=== PATIENT | female | born 1990 | race African-American/Black ===

== ENCOUNTER 2019-03-28 17:24 | Emergency (ER) | payer OTHER ==
[~2019-03-28] VITALS: Ht 170.2 cm; Wt 162.8 kg
[2019-03-28 17:33] VITALS: BP 140/93
--- NOTE | 2019-03-28 18:32 | PHYS DOC ---
Past Medical History Past Medical History: Asthma Past Surgical History: No Surgical History Alcohol Use: None Drug Use: None Adult General Chief Complaint Chief Complaint: OTHER COMPLAINTS [facility] Patient is a 28 year old female who presents with nose pain this been ongoing for 3 days. Patient states that she was sick started a week ago and running fevers, nasal congestion, runny nose, fever. The patient states that she stopped being sick however then she started having cuts in her nose so she put some cold sore treatment inside the nose her nose started swelling and itching. Review of Systems Review of Systems Constitutional: Denies fever or chills [] Eyes: Denies change in visual acuity, redness, or eye pain [] HENT: Reports nasal sores. Respiratory: Denies cough or shortness of breath [] Cardiovascular: No additional information not addressed in HPI [] GI: Denies abdominal pain, nausea, vomiting, bloody stools or diarrhea [] : Denies dysuria or hematuria [] Musculoskeletal: Denies back pain or joint pain [] Integument: Denies rash or skin lesions [] Neurologic: Denies headache, focal weakness or sensory changes [] Endocrine: Denies polyuria or polydipsia [] Complete systems were reviewed and found to be within normal limits, except as documented in this note. Allergies Allergies Allergies Coded Allergies Type Severity Reaction Last Updated Verified No Known Drug Allergies 05/31/13 No Physical Exam Physical Exam Constitutional: Well developed, well nourished, no acute distress, non-toxic appearance. [] HENT: Normocephalic, nose is swollen, atraumatic, bilateral external ears normal, oropharynx moist, no oral exudates Eyes: PERRLA, EOMI, conjunctiva normal, no discharge. [] Neck: Normal range of motion, no tenderness, supple, no stridor. [] Cardiovascular:Heart rate regular rhythm, no murmur [] Lungs & Thorax: Bilateral breath sounds clear to auscultation [] Abdomen: Bowel sounds normal, soft, no tenderness, no masses, no pulsatile masses. [] Skin: nasal sores bilateral nose. Back: No tenderness, no CVA tenderness. [] Extremities: No tenderness, no cyanosis, no clubbing, ROM intact, no edema. [] Neurologic: Alert and oriented X 3, normal motor function, normal sensory function, no focal deficits noted. [] Psychologic: Affect normal, judgement normal, mood normal. [] Current Patient Data Vital Signs Vital Signs Date Time Temp Pulse Resp B/P (MAP) Pulse Ox O2 Delivery O2 Flow Rate FiO2 03/28/19 17:33 99.3 78 18 140/93 (109) 97 Room Air 99.3 EKG EKG [] Radiology/Procedures Radiology/Procedures [] Course & Med Decision Making Course & Med Decision Making Pertinent Labs and Imaging studies reviewed. (See chart for details) The patient has nasal sores and swelling. I suspect she is having a localized r eaction to the medication that she was using for her nose. I recommended that she stop using this medication and start using Neosporin in nares. Dragon Disclaimer Dragon Disclaimer This electronic medical record was generated, in whole or in part, using a voice recognition dictation system. Departure Departure Impression: Primary Impression: Sore in nose Disposition: HOME, SELF-CARE Condition: STABLE Referrals: FLETCHER BRADLEY MD (PCP) Additional Instructions: Thank you for visiting [facility]. We appreciate you trusting us with your care. If any additional problems come up don't hesitate to return to visit us. Please follow up with your primary care provider so they can plan additional care if needed and know about the problem that you had. If symptoms worsen come back to the Emergency Department. Any concerning symptoms that start such as chest pain, shortness of air, weakness or numbness on one side of the body, running high fevers or any other concerning symptoms return to the ER. Please start using Neosporin in your nares to see if that improves her condition. TRISTAN MARTIN APRN Mar 28, 2019 18:32
== END 2019-03-28 18:52 | disposition home or self-care (01) ==
LOC: ER 17:24
DX: J34.89 Other specified disorders of nose and nasal sinuses (principal); R09.81 Nasal congestion; R50.9 Fever, unspecified; R09.89 Other specified symptoms and signs involving the circulatory and respiratory systems; J45.909 Unspecified asthma, uncomplicated
CPT/HCPCS: 99281

== ENCOUNTER 2019-05-12 18:37 | Emergency (ER) | payer OTHER ==
[~2019-05-12] VITALS: Ht 172.7 cm; Wt 146.8 kg
[2019-05-12 18:52] VITALS: BP 153/93
[2019-05-12] MEDS ORDERED: NYST15PO9 TP (19:33)
[2019-05-12] MEDS ORDERED: FLUC150T PO (19:33)
--- NOTE | 2019-05-12 19:33 | PHYS DOC ---
Past Medical History Past Medical History: Asthma (LAURIE HOFFMAN APRN) Past Surgical History: No Surgical History (LAURIE HOFFMAN APRN) Alcohol Use: None Drug Use: None (LAURIE HOFFMAN APRN) Attending Signature I have participated in the care of this patient and I have reviewed and agree with all pertinent clinical information above including history, exam, and recommendations. (AGUILA RUTHERFORD MD) Adult General Chief Complaint Chief Complaint: VAGINAL PROBLEM HPI HPI Patient is a 28 year old AA female who presents to the emergency department with complaints of vaginal itching for the last week. She denies any irregular vaginal discharge, pelvic pain, vaginal odor, dysuria, hematuria, back pain, nausea, vomiting, diarrhea, fever, andominal pain, or concerns of sexually transmitted infection. Patient states she has been using ewlu-jzk-[id number] feminine washes and Vagisil to try to help with itching but reports that the itching has only become more intense. She denies any pain at this time. All other ROS is neg unless otherwise noted in HPI. (LAURIE HOFFMAN APRN) Review of Systems Review of Systems See Above (LAURIE HOFFMAN APRN) Allergies Allergies Allergies Coded Allergies Type Severity Reaction Last Updated Verified No Known Drug Allergies 05/31/13 No (AGUILA RUTHERFORD MD) Physical Exam Physical Exam See Above Constitutional: Well developed, well nourished, no acute distress, non-toxic appearance, obese. [] HENT: Normocephalic, atraumatic, bilateral external ears normal, nose normal. [] Eyes: PERRLA, EOMI, conjunctiva normal, no discharge. [] Neck: Normal range of motion, no stridor. [] Cardiovascular:Heart rate regular rhythm Lungs & Thorax: Respirations even and unlabored, no retractions, no respiratory distress Pelvic Exam: Office Systems Technology Instructor present [facility] Abdomen: Nontender, soft External Genitalia: Erythema with white discharge present to vulva consistent with vulvar lloyd Skin: Warm, dry Extremities: No cyanosis, ROM intact Neurologic: Alert and oriented X 3, no focal deficits noted. [] Psychologic: Affect normal, judgement normal, mood normal. [] (LAURIE HOFFMAN APRN) Current Patient Data Vital Signs Vital Signs Date Time Temp Pulse Resp B/P (MAP) Pulse Ox O2 Delivery O2 Flow Rate FiO2 05/12/19 18:52 98.8 83 20 153/93 (113) 100 Room Air 98.8 (AGUILA RUTHERFORD MD) EKG EKG [] (LAURIE HOFFMAN APRN) Radiology/Procedures Radiology/Procedures [] (LAURIE HOFFMAN APRN) Course & Med Decision Making Course & Med Decision Making Pertinent Labs and Imaging studies reviewed. (See chart for details) [] (LAURIE HOFFMAN APRN) Dragon Disclaimer Dragon Disclaimer This electronic medical record was generated, in whole or in part, using a voice recognition dictation system. (LAURIE HOFFMAN APRN) Departure Departure Impression: Primary Impression: Vulvar candidiasis Disposition: 01 HOME, SELF-CARE Condition: STABLE Referrals: FLETCHER BRADLEY MD (PCP) Patient Instructions: Candidal Vulvovaginitis, Cwlu-[id number] Additional Instructions: Fill the prescriptions and use them as directed. Recommend leaving the affected area open to air at night. Do not use soap or feminine products to cleanse vaginal area. Follow-up with your STRUCTURAL ANALYSIS ENGINEER this week. Return to the ER symptoms worsen. Scripts Nystatin (NYSTATIN) 15 Gm Powder 1 LEO TP BID for 7 Days, #1 BOTTLE 0 Refills apply to affected area(s) Prov: LAURIE HOFFMAN APRN 05/12/19 Fluconazole (DIFLUCAN) 150 Mg Tablet 1 TAB PO ONCE, #1 TAB 1 Refill may repeat in 72 hours if symptoms persist Prov: LAURIE HOFFMAN APRN 05/12/19 LAURIE HOFFAMN APRN May 12, 2019 19:33 AGUILA RUTHERFORD MD May 13, 2019 03:56
== END 2019-05-12 19:42 | disposition home or self-care (01) ==
LOC: ER 18:37
DX: B37.3 Candidiasis of vulva and vagina (principal); J45.909 Unspecified asthma, uncomplicated
CPT/HCPCS: 99283

== ENCOUNTER 2019-07-28 18:28 | Emergency (ER) | payer OTHER ==
[~2019-07-28] VITALS: Ht 172.7 cm; Wt 140.9 kg
[~2019-07-28 18:28] MED LIST: FLUC150T PO; NYST15PO9 TP
[2019-07-28 19:00] VITALS: BP 170/100
[2019-07-28] MEDS ORDERED: FLUC150T PO (19:20)
--- NOTE | 2019-07-28 19:20 | PHYS DOC ---
Past Medical History Past Medical History: Asthma Past Surgical History: No Surgical History Smoking Status: Never Smoker Alcohol Use: None Drug Use: None General Adult EDM: Chief Complaint: VAGINAL PROBLEM HPI: HPI: Patient is a 28 year old female with history of asthma who presents with complaining of yeast infection. Patient states for the last week she had cottage cheese vaginal discharge and itching that did not get better with taking szyn-orw-nxvmloe infection medication. Patient states she had the same problem couple months ago and was seen in this emergency room and had unremarkable vaginal exam except for yeast infection and treated with Diflucan with improvement of her condition. Patient denies having new sexual partner, , concern or history of STD. Review of Systems: Review of Systems: Constitutional: Denies fever or chills. [] Eyes: Denies change in visual acuity. [] HENT: Denies nasal congestion or sore throat. [] Respiratory: Denies cough or shortness of breath. [] Cardiovascular: Denies chest pain or edema. [] GI: Denies abdominal pain, nausea, vomiting, bloody stools or diarrhea. [] : Denies dysuria. [] Musculoskeletal: Denies back pain or joint pain. [] Integument: Denies rash. [] Neurologic: Denies headache, focal weakness or sensory changes. [] Endocrine: Denies polyuria or polydipsia. [] Lymphatic: Denies swollen glands. [] Psychiatric: Denies depression or anxiety. [] Heart Score: Risk Factors: Risk Factors: DM, Current or recent (<one month) smoker, HTN, HLP, family history of CAD, obesity. Risk Scores: Score 0 - 3: 2.5% MACE over next 6 weeks - Discharge Home Score 4 - 6: 20.3% MACE over next 6 weeks - Admit for Clinical Observation Score 7 - 10: 72.7% MACE over next 6 weeks - Early Invasive Strategies Allergies: Allergies: Allergies Coded Allergies Type Severity Reaction Last Updated Verified No Known Drug Allergies 05/31/13 No Physical Exam: PE: Constitutional: Well developed, well nourished, no acute distress, non-toxic appearance. [] HENT: Normocephalic, atraumatic. Eyes: PERRLA, EOMI, conjunctiva normal, no discharge. [] Neck: Normal range of motion, no tenderness, supple, no stridor. [] Cardiovascular:Heart rate regular rhythm, no murmur [] Lungs & Thorax: Bilateral breath sounds clear to auscultation [] Abdomen: Bowel sounds normal, soft, no tenderness, no masses, no pulsatile masses. Patient refused vaginal exam. Neurologic: Alert and oriented X 3, no focal deficits noted. [] Psychologic: Affect normal, judgement normal, mood normal. [] Current Patient Data: Vital Signs: Vital Signs Date Time Temp Pulse Resp B/P (MAP) Pulse Ox O2 Delivery O2 Flow Rate FiO2 07/28/19 19:00 97.7 127 16 170/100 (123) 99 Room Air 97.7 EKG: EKG: [] Radiology/Procedures: Radiology/Procedures: [] Course & Med Decision Making: Course & Med Decision Making Evaluation of patient in ER showed 28-year-old female patient with complaining of vaginal discharge and having yeast infection. Patient states she had the same problem previously and with diagnosis of yeast infection and did not want a vaginal exam. Patient had blood pressure of 140/100 and heart rate of 110s and states she gets anxiety when she is come to the hospital. Patient was advised to recheck her blood pressure and follow-up with her primary care physician sally. I've spoken with the patient and/or caregivers. I've explained the patient's condition, diagnosis and treatment plan based on information available to me at this time. I've answered the patient's and/or caregivers questions and addressed any concerns. The patient and/or caregivers have a good understanding the patient's diagnosis, condition and treatment plan as can be expected at this point. Vital signs have been stabilized. The patient's condition is stable for discharge from the emergency department. The patient will pursue further outpatient evaluation with her primary care provider or other designated consulting physician as outlined in the discharge instructions. Patient and/or caregivers are agreeable to this plan of care and follow-up instructions have been explained in detail. The patient and/or caregivers have received these instructions in written format and expressed understanding of these discharge instructions. The patient and her caregivers are aware that if any significant change in condition or worsening of symptoms should prompt him to immediately return to this of the closest emergency department. If an emergent department is not readily available I would encourage him to call 911. Ely Disclaimer: Ely Disclaimer: This electronic medical record was generated, in whole or in part, using a voice recognition dictation system. Departure Departure Impression: Primary Impression: Vaginal discharge Additional Impressions: Morbid obesity Elevated blood pressure reading without diagnosis of hypertension Disposition: HOME, SELF-CARE (At 1913) Condition: STABLE Referrals: FLETCHER BRADLEY MD (PCP) Patient Instructions: Candidal Vulvovaginitis, Chtu-[id number] Additional Instructions: Drink plenty of liquids Follow-up with your primary care physician in 3-5 days Return to ER if not getting better Record your blood pressure and follow-up with your primary care physician if your blood pressure is elevated Thank you for visiting [facility]. We appreciate you trusting us with your care. If any additional problems come up don't hesitate to return to visit us. Please follow up with your primary care provider so they can plan additional care if needed and know about the problem that you had. If symptoms worsen come back to the Emergency Department. Any concerning symptoms that start such as chest pain, shortness of air, weakness or numbness on one side of the body, running high fevers or any other concerning symptoms return to the ER. Scripts Fluconazole (DIFLUCAN) 150 Mg Tablet 1 TAB PO ONCE, #2 TAB 1 Refill Take one pill today, repeat in one week. Prov: KIRTI VALE MD 07/28/19 KIRTI VALE MD Jul 28, 2019 19:20
== END 2019-07-28 19:49 | disposition home or self-care (01) ==
LOC: ER 18:28
DX: N89.8 Other specified noninflammatory disorders of vagina (principal); R03.0 Elevated blood-pressure reading, without diagnosis of hypertension; J45.909 Unspecified asthma, uncomplicated; E66.01 Morbid (severe) obesity due to excess calories; Z68.42 Body mass index [BMI] 45.0-49.9, adult
CPT/HCPCS: 99283

== ENCOUNTER 2020-07-15 05:17 | Emergency (ER) | payer OTHER ==
[~2020-07-15] VITALS: Ht 172.7 cm; Wt 77.8 kg
[2020-07-15 05:20] VITALS: BP 169/97
[2020-07-15] MEDS ORDERED: PRED50TA PO (06:00)
[2020-07-15] MEDS ORDERED: CETI1TAB7 PO (06:00)
--- NOTE | 2020-07-15 06:02 | ED.ADGEN ---
Past Medical History Past Medical History: Asthma Past Surgical History: No Surgical History Smoking Status: Never Smoker Alcohol Use: None Drug Use: None General Adult EDM: Chief Complaint: SORE THROAT HPI: HPI: Patient is a 29-year-old female with past medical history of asthma who presents to the emergency room complaining of nasal congestion, bilateral ear pain, sore throat, painful swallowing, cough, chest congestion. This is been ongoing for the last 3 days. Her son and sister are also ill. She has not been taking anything at home for her symptoms. She has been using her albuterol inhaler due to wheezing. She denies any shortness of breath. She does not have any chest pain. Review of Systems: Review of Systems: Complete ROS is negative unless otherwise documented in HPI Allergies: Allergies: Allergies Coded Allergies Type Severity Reaction Last Updated Verified No Known Drug Allergies 05/31/13 No Physical Exam: PE: General: Awake, alert, NAD. Well Nourished, well hydrated. Cooperative HEENT: Atraumatic, EOMI, PERRL, airway patent, moist oral mucosa, bilateral tonsillar swelling with ulceration Neck: Supple, trachea midline Respiratory: CTA bilaterally, normal effort, no wheezing/crackles CV: RRR, no murmur, cap refill <2 GI: Soft, nondistended, nontender, no masses MSK: No obvious deformities Skin: Warm, dry, intact Neuro: A&O x3, speech NL, sensory and motor grossly intact, no focal deficits Psych: Normal affect, normal mood, not suicidal or homicidal Current Patient Data: Labs: Laboratory Tests Test 07/15/20 06:21 POC Urine HCG, Qualitative Hcg negative (Negative) Vital Signs: Vital Signs Date Time Temp Pulse Resp B/P (MAP) Pulse Ox O2 Delivery O2 Flow Rate FiO2 07/15/20 05:20 98.8 99 22 169/97 (121) 100 Room Air 98.8 EKG: EKG: [] Heart Score: C/O Chest Pain: N/A Risk Factors: Risk Factors: DM, Current or recent (<one month) smoker, HTN, HLP, family history of CAD, obesity. Risk Scores: Score 0 - 3: 2.5% MACE over next 6 weeks - Discharge Home Score 4 - 6: 20.3% MACE over next 6 weeks - Admit for Clinical Observation Score 7 - 10: 72.7% MACE over next 6 weeks - Early Invasive Strategies Radiology/Procedures: Radiology/Procedures: [] Course & Med Decision Making: Course & Med Decision Making Pertinent Labs and Imaging studies reviewed. (See chart for details) Patient is a 29-year-old female who presents to the emergency room complaining of URI symptoms. Patient does have bilateral tonsillar swelling. We will place her on prednisone for asthma exacerbation. She does not have any hypoxia at this time and does not need DuoNeb treatments here in the emergency room. She did use her albuterol inhaler right before coming in. Will swab for strep. Patient states there is no chance she could be . Patient discussed with oncoming physician who will assume care. Accepted care of patient at shift change. Pending strep results. Strep results negative we will discharged with medications prescribed by previous physician. Ely Disclaimer: Ely Disclaimer: This electronic medical record was generated, in whole or in part, using a voice recognition dictation system. Departure Departure Impression: Primary Impression: URI (upper respiratory infection) Disposition: 01 DC HOME SELF CARE/HOMELESS Condition: STABLE Referrals: FLETCHER BRADLEY MD (PCP) Patient Instructions: Upper Respiratory Infection, Adult Scripts Cetirizine Hcl/Pseudoephedrine (ZYRTEC-D TABLET) 1 Each Tab.er.12h 1 TAB PO BID, #20 TAB Prov: SARI DALTON MD 07/15/20 Prednisone (PREDNISONE) 50 Mg Tablet 1 TAB PO DAILY, #5 TAB Prov: SARI DALTON MD 07/15/20 SARI DALTON MD Jul 15, 2020 06:02 SREEDHAR ANDERSON MD Jul 15, 2020 06:43
== END 2020-07-15 06:57 | disposition home or self-care (01) ==
LOC: ER 05:17
DX: J06.9 Acute upper respiratory infection, unspecified (principal); J45.909 Unspecified asthma, uncomplicated
CPT/HCPCS: 81025; 87070; 87880; 99283

== ENCOUNTER 2020-11-15 14:39 | Emergency (ER) | payer OTHER ==
[~2020-11-15] VITALS: Ht 172.7 cm; Wt 170.4 kg
[~2020-11-15 14:39] MED LIST changes: +CETI1TAB7 PO; +PRED50TA PO
[2020-11-15 15:32] VITALS: BP 155/88
[2020-11-15] MEDS ORDERED: TOBR5DRO6 OS (16:06)
--- NOTE | 2020-11-15 16:07 | ED.ADGEN ---
Past Medical History Past Medical History: Asthma, Diabetes-Type II, Other Past Surgical History: No Surgical History Smoking Status: Never Smoker Alcohol Use: None Drug Use: None General Adult EDM: Chief Complaint: EYE PROBLEMS HPI: HPI: Patient is a 30 year old morbidly obese AA female who presents to the emergency department with complaints of the left eye redness and tearing for the last 3 to 4 days. She states that in the morning when she wakes up her eyelashes were crusted shut. She denies any decreased vision, photosensitivity, blurred vision, nasal congestion, fever, cough, vomiting, diarrhea, back pain, body aches, or rash. Patient states that she just found out she was recently she has an appointment with her primary care doctor tomorrow to find out how far along she is. She denies any abdominal complaints or irregular vaginal discharge at this time. Patient states she has felt nauseated but denies nausea at this time. She denies any contact lens use, she states that she does use false eyelashes frequently. Review of Systems: Review of Systems: Complete ROS is negative unless otherwise noted in HPI. Allergies: Allergies: Allergies Coded Allergies Type Severity Reaction Last Updated Verified No Known Drug Allergies 05/31/13 No Physical Exam: PE: See Above Constitutional: Well developed, well nourished, no acute distress, non-toxic appearance. [] HENT: Normocephalic, atraumatic, bilateral external ears normal, nose normal. [] Eyes: PERRLA, EOMI, right eye conjunctiva normal, no discharge from right eye; left eye conjunctive injected with watery discharge mild edema of upper and lower left eyelids.. [] Neck: Normal range of motion, no stridor. [] Cardiovascular:Heart rate regular rhythm Lungs & Thorax: Respirations even and unlabored, no retractions, no respiratory distress Skin: Warm, dry, no erythema, no rash. [] Extremities: No cyanosis, ROM intact, no edema. [] Neurologic: Alert and oriented X 3, no focal deficits noted. [] Psychologic: Affect normal, judgement normal, mood normal. [] Current Patient Data: Vital Signs: Vital Signs Date Time Temp Pulse Resp B/P (MAP) Pulse Ox O2 Delivery O2 Flow Rate FiO2 11/15/20 15:32 97.9 100 18 155/88 (121) 100 Room Air 97.9 EKG: EKG: [] Heart Score: C/O Chest Pain: No Radiology/Procedures: Radiology/Procedures: [] Course & Med Decision Making: Course & Med Decision Making Pertinent Labs and Imaging studies reviewed. (See chart for details) [] Bridgetteon Disclaimer: Ely Disclaimer: This electronic medical record was generated, in whole or in part, using a voice recognition dictation system. Departure Departure Impression: Primary Impression: Acute conjunctivitis, left eye Disposition: HOME / SELF CARE / HOMELESS Condition: STABLE Referrals: FLETCHER BRADLEY MD (PCP) Patient Instructions: Conjunctivitis (Viral and Bacterial) Additional Instructions: Fill the prescription(s) and use as directed. Apply warm, moist washcloths to eyes needed for comfort. Recommend use of baby shampoo to wash eyelids. Follow- up with your primary care doctor in 1-2 days. Return to the emergency room if your symptoms worsen. Scripts Tobramycin Ophth (TOBRAMYCIN OPHTH DROPS) 5 Ml Drops 2 DROP OS QID for 5 Days, #5 ML 0 Refills Prov: LAURIE HOFFMAN ANIMAL DAMAGE CONTROL AGENT 11/15/20 Problem Qualifiers Primary Impression: Acute conjunctivitis, left eye Acute conjunctivitis type: unspecified Qualified Codes: H10.32 - Unspecified acute conjunctivitis, left eye LAURIE HOFFMAN ANIMAL DAMAGE CONTROL AGENT Nov 15, 2020 16:07
== END 2020-11-15 16:12 | disposition home or self-care (01) ==
LOC: ER 14:39
DX: H10.32 Unspecified acute conjunctivitis, left eye (principal); E11.9 Type 2 diabetes mellitus without complications; J45.909 Unspecified asthma, uncomplicated; E66.01 Morbid (severe) obesity due to excess calories; Z68.43 Body mass index [BMI] 50.0-59.9, adult
CPT/HCPCS: 99283

== ENCOUNTER 2020-11-19 16:07 | Emergency (ER) | payer OTHER ==
[~2020-11-19] VITALS: Ht 172.7 cm; Wt 156.8 kg
[~2020-11-19 16:07] MED LIST changes: +TOBR5DRO6 OS
[2020-11-19 17:17] VITALS: BP 159/72
--- NOTE | 2020-11-19 17:45 | PHYS DOC ---
Past Medical History Past Medical History: Asthma, Diabetes-Type II, Other Past Surgical History: No Surgical History Smoking Status: Current Every Day Smoker Additional Information: VAPES Alcohol Use: None Drug Use: None General Adult EDM: Chief Complaint: OTHER COMPLAINTS HPI: HPI: Patient is a 30 year old female who presented to ER to request a Covid test. Patient said her roommates told her that they were tested positive for COVID-19 recently. Patient denies any cough, no fever, no chest pain, no trouble breathing, no diarrhea, no arm pain, no pelvic pain, no nausea vomiting. Patient has history diabetic, asthma. Patient says she recently found out that she is . Patient denies any related symptom, denies any vaginal bleeding, no pelvic pain, no abdominal pain. Patient is scheduled to see her OB on this coming Saturday. Review of Systems: Review of Systems: Constitutional: Denies fever or chills. [] Eyes: Denies change in visual acuity. [] HENT: Denies nasal congestion or sore throat. [] Respiratory: Denies cough or shortness of breath. [] Cardiovascular: Denies chest pain or edema. [] GI: Denies abdominal pain, nausea, vomiting, bloody stools or diarrhea. [] : Denies dysuria. [] Musculoskeletal: Denies back pain or joint pain. [] Integument: Denies rash. [] Neurologic: Denies headache, focal weakness or sensory changes. [] Endocrine: Denies polyuria or polydipsia. [] Lymphatic: Denies swollen glands. [] Psychiatric: Denies depression or anxiety. [] Heart Score: C/O Chest Pain: N/A Risk Factors: Risk Factors: DM, Current or recent (<one month) smoker, HTN, HLP, family history of CAD, obesity. Risk Scores: Score 0 - 3: 2.5% MACE over next 6 weeks - Discharge Home Score 4 - 6: 20.3% MACE over next 6 weeks - Admit for Clinical Observation Score 7 - 10: 72.7% MACE over next 6 weeks - Early Invasive Strategies Allergies: Allergies: Allergies Coded Allergies Type Severity Reaction Last Updated Verified No Known Drug Allergies 05/31/13 No Physical Exam: PE: Constitutional: Well developed, well nourished, no acute distress, non-toxic appearance. [] HENT: Normocephalic, atraumatic, bilateral external ears normal, oropharynx moist, no oral exudates, nose normal. [] Eyes: PERRLA, EOMI, conjunctiva normal, no discharge. [] Neck: Normal range of motion, no tenderness, supple, no stridor. [] Cardiovascular:Heart rate regular rhythm, no murmur [] Lungs & Thorax: Bilateral breath sounds clear to auscultation [] Abdomen: Bowel sounds normal, soft, no tenderness, no masses, no pulsatile masses. [] Skin: Warm, dry, no erythema, no rash. [] Back: No tenderness, no CVA tenderness. [] Extremities: No tenderness, no cyanosis, no clubbing, ROM intact, no edema. [] Neurologic: Alert and oriented X 3, normal motor function, normal sensory function, no focal deficits noted. [] Psychologic: Affect normal, judgement normal, mood normal. [] Current Patient Data: Labs: Laboratory Tests Test 11/19/20 17:36 POC Urine HCG, Qualitative Hcg positive (Negative) Vital Signs: Vital Signs Date Time Temp Pulse Resp B/P (MAP) Pulse Ox O2 Delivery O2 Flow Rate FiO2 11/19/20 17:17 98.3 121 17 159/72 (121) 99 Room Air 98.3 EKG: EKG: [] Radiology/Procedures: Radiology/Procedures: [] Course & Med Decision Making: Course & Med Decision Making Pertinent Labs and Imaging studies reviewed. (See chart for details) Patient is a 30-year-old female who presented to ER to have a Covid test because of close exposure to her roommates who was tested positive for COVID-19 recently. Patient denies any symptoms at this time, no chest pain, no trouble breathing, no cough, no fever. Patient is in her early first trimester , she is scheduled to see her OB doctor on this coming Saturday. We will obtain a Covid test, discharge her home with COVID-19 exposure and COVID-19 information. Patient will be quarantine at home until see her from the lab result. Ely Disclaimer: Ely Disclaimer: This electronic medical record was generated, in whole or in part, using a voice recognition dictation system. Departure Departure Impression: Primary Impression: Close exposure to COVID-19 virus Disposition: 01 HOME / SELF CARE / HOMELESS Condition: STABLE Referrals: FLETCHER BRADLEY MD (PCP) Follow up with your doctor for care. Additional Instructions: You have been tested for or diagnosed with COVID-19. It is an infection caused by a new type of coronavirus. COVID-19 will cause cold-like or mild flu symptoms in most. It can cause more severe symptoms like problems breathing in some. There is no treatment for COVID-19. The body will clear the infection over time. Self-care will help to ease discomfort. Steps to Take: Self-Care Rest as needed. Healthy habits may help you feel better. Steps include: Choose healthy foods including fruits and vegetables. Drink water throughout the day. Get plenty of sleep each night. If you smoke, try to quit. It may ease breathing. Avoid alcohol. Keep Others Healthy The virus can spread to others. Droplets are released every time you sneeze or cough. The droplets can get into the mouth, nose, or eyes of people near you and lead to infection. To lower the chances of spreading COVID-19 to others: Stay at home until your doctor has said it is safe to leave. If you tested positive this will mean staying isolated until both of the following are true: At least 7 days have passed since the start of illness. You are free of fever for at least 72 hours without the use of medicine. During this time: - Avoid public areas, events, or transportation. Do not return to work or school until your doctor has said it is safe to do so. - Call ahead if you need to go to a medical center. Let them know you may have COVID-19. It will help them guide you where to go. They may also ask you to wear a facemask when you come to the office. - If you call for emergency medical services, let them know you may have COVID- 19. While at home: - Try to avoid close contact with others. Stay about 6 feet away. - If possible, spend most of your time in a separate room from others. - Use a face mask if you will be in close contact with others such as sharing a room or vehicle. - Have someone wipe down common surfaces in the home. Use household supervisor cartography every day on areas like doorknobs, counters, or sinks. - Cough or sneeze into a tissue. Throw the tissue away right after use. If a tissue is not available, cough or sneeze into your elbow. - Wash your hands often. Wash them after sneezing or coughing. Use soap and water and wash for at least 20 seconds. Alcohol based hand mercury cell cleaner can be used if soap and water is not available. - Do not prepare food for others. Avoid sharing personal items like forks, spoons, or toothbrushes. - Avoid close contact with pets while you are sick. There is no evidence of the virus passing to pets. This is a safety step until more is known about this virus. Isolation can be frustrating. Social interaction can help. Keep in touch with friends and family through phone and tech options. You can still interact with others in your home, just keep a safe distance of about 6 feet. Follow-up: Your doctors office will check in with you to see if there are any changes in your health. You may be asked to keep track of symptoms to share with them. They will also let you know when you are clear to be in public again. Problems to Look Out For: Contact your doctor if your recovery is not going as you expect. Get emergency care if you have problems such as: - Trouble breathing - Nonstop chest pain or pressure - Changes in awareness, confusion, or problems waking - Lips or face have bluish color - Worsening of symptoms If you think you have an emergency, call for emergency medical services right away. As taken from [facility] Cao DO Nov 19, 2020 17:45
--- NOTE | 2020-11-21 11:37 | NUR ---
IP: Informed pt of positive covid test and the need to quarantine for 10 days. Pt verbalized understanding.
== END 2020-11-19 18:23 | disposition home or self-care (01) ==
LOC: ER 16:07
DX: U07.1 COVID-19 (principal); E11.9 Type 2 diabetes mellitus without complications; J45.909 Unspecified asthma, uncomplicated; F17.200 Nicotine dependence, unspecified, uncomplicated
CPT/HCPCS: 81025; 87426; 99283; U0003; U0005